=== PATIENT | female | born 1965 | race Caucasian/White ===

== ENCOUNTER → 2016-08-31 | Outpatient (CLI) | payer OTHER, BC | END | disposition home or self-care (01) | LOC: C.PAPS 15:47 | PROVIDERS: ATTEND Obstetrics & Gynecology | DX: Z12.4 Encounter for screening for malignant neoplasm of cervix (principal) ==

== ENCOUNTER → 2016-09-29 | Outpatient (CLI) | payer OTHER, BC ==
--- NOTE | 2016-09-29 12:41 | MAMMOGRAPHY REPORT ---
ULTRASOUND OF RIGHT BREAST: 09/29/2016 CLINICAL HISTORY: Six-month follow-up of right 9:00 breast mass. COMPARISON: Comparison is made to exams dated: 03/18/2016 mammogram, 03/11/2015 mammogram, 03/08/2014 ma mmogram, 02/27/2013 mammogram, 03/01/2013 mammogram, and 03/01/2012 mammogram - [facility] enter. TECHNIQUE: Real-time targeted ultrasound of the right breast was performed. FINDINGS: Real-time, high resolution targeted ultrasound was performed of the area of the previousl y seen mass in the right breast at 9:00, 1 cm from the nipple. Again noted is an oval anechoic circ umscribed round 4 mm mass, consistent with a benign simple cyst. Adjacent to this and sightly more posterior is an oval parallel hypoechoic circumscribed mass with a thin echogenic internal septation , measuring 8 x 3 x 5 mm. This is stable in size and appearance compared to the 03/31/2016 exam. Gi anna the presence of multiple bilateral cysts seen on the prior ultrasound, the mass is probably isr[place] gn and likely represents a complicated cyst. However, a benign-appearing solid mass cannot be exclu ded. Therefore, recommend another short interval follow-up ultrasound in 6 months. IMPRESSION: ACR-BI-RADS CATEGORY 3: PROBABLY BENIGN - FOLLOW-UP RECOMMENDED Hypoechoic 8 mm mass in the right breast at 9:00 is stable compared to the 03/31/2016 exam. The mass is probably benign and likely represents a complicated cyst. Recommend another follow-up right erin ast ultrasound in 6 months to confirm 1 year of stability. Routine bilateral tomosynthesis mammogra ms can be performed at that time. The patient was verbally notified of the results. Elis Brothers M.D. /:09/29/2016 08:25:08 Facility Maintenance Technician: Elis Brothers MD, [facility] letter sent: Follow Up Recommended 3 BI-RADS Code: ACR-BI-RADS Category 3: Probably Benign
== END | disposition home or self-care (01) ==
LOC: C.MAMM 07:55
PROVIDERS: ATTEND Obstetrics & Gynecology
DX: N63 Unspecified lump in breast (principal)

== ENCOUNTER → 2017-04-01 | Outpatient (CLI) | payer OTHER, BC ==
--- NOTE | 2017-04-01 14:54 | MAMMOGRAPHY REPORT ---
BILATERAL DIGITAL DIAGNOSTIC MAMMOGRAM TOMOSYNTHESIS WITH CAD AND TARGETED RIGHT ULTRASOUND: 7 CLINICAL HISTORY: 6 month follow-up of a right breast mass. Due for routine mammography of the left breast. TECHNIQUE: Breast tomosynthesis in addition to standard 2D mammography was performed. Current study was also evaluated with a Computer Aided Detection (CAD) system. Bilateral CC and MLO 2-D and tomosy nthesis views were obtained. COMPARISON: Comparison is made to exams dated: 09/29/2016 ultrasound, 03/31/2016 ultrasound, 03/18/2016 mammogram, 03/11/2015 mammogram, 03/08/2014 mammogram, and 02/27/2013 mammogram - [facility] enter. BREAST COMPOSITION: The tissue of both breasts is heterogeneously dense, which may obscure small mas ses. FINDINGS: There are no suspicious masses, calcifications, or areas of architectural distortion noted in either breast. There has been no significant interval change compared to prior exams. Bilateral benign-appearing calcifications are not significantly changed, including grouped calcifications in t he left upper outer quadrant middle depth which are stable dating back to at least the 2008 exam. Le ft subareolar asymmetry is also stable compared to multiple prior exams. Other bilateral asymmetries are stable. Targeted ultrasound was performed of the right 9:00 breast in the region of the previously seen mammo graphic mass. In the right breast at 9:00, 1 cm from the nipple, there is an oval circumscribed anec hoic 5 x 5 mm mass, as well as an adjacent 4 mm round anechoic circumscribed mass. These are consist ent with benign simple cysts. No suspicious solid mass is evident. IMPRESSION: ACR BI-RADS CATEGORY 2: BENIGN, TARGETED ULTRASOUND ACR BI-RADS CATEGORY 2: BENIGN Two small benign cysts in the right 9:00 breast. There is no mammographic or targeted sonographic mignon dence of malignancy. A 1 year screening mammogram is recommended. The patient has been verbally noti fied of the results. Approximately 10% of breast cancers are not detected with mammography. A negative mammographic report should not delay biopsy if a clinically suggestive mass is present. Elis Brothers M.D. /:04/01/2017 09:15:15 Silk Screen Frame Assembler: Denice DELA CRUZ(Becky)(M), [facility] letter sent: Normal 1/2 BI-RADS Code: ACR BI-RADS Category 2: Benign Ultrasound BI-RADS: ACR BI-RADS Category 2: Benign
== END | disposition home or self-care (01) ==
LOC: C.MAMM 08:13
PROVIDERS: ATTEND Obstetrics & Gynecology
DX: N60.01 Solitary cyst of right breast (principal)